=== PATIENT | female | born 1975 | race Caucasian/White ===

== ENCOUNTER 2017-10-22 05:42 | Emergency (ER) | payer SELFPAY ==
[~2017-10-22 05:42] MED LIST: CLIN1CAP5 PO; HYDR-3533 PO; MMW SSP; NYST100010 PO
[2017-10-22] MEDS ORDERED: diphenhydrAMINE HCL 50 MG/ML VIAL IV PUSH ONE (06:00)
[2017-10-22] MEDS ORDERED: LORazepam 2 MG/ML VIAL ONE (06:05)
[2017-10-22] MEDS ORDERED: LORAZEPAM 2 MG/ML IM ONE (06:09)
[2017-10-22 06:10] VITALS: BP 162/87; PULSE 75; RESP 18; O2SAT 99
[2017-10-22] MEDS ORDERED: ZIPRASIDONE MESYLATE 20 MG VIAL IM PRN (06:30)
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
--- NOTE | 2017-10-22 13:36 | PD ---
Physical Exam Narrative This patient was seen by previous provider, medically clear and can be discharge when sober and ambulating. Patient is now sober and cooperative. She admits to drinking alcohol. Denies any trauma, chest pain, sob, n/v, abdominal pain, focal weakness or numbness. Ambulating in the ED without any assistance and wants to go home. Data Data Last Documented VS Vital Signs Date Time Temp Pulse Resp B/P (MAP) Pulse Ox O2 Delivery O2 Flow Rate FiO2 10/22/17 06:10 75 18 162/87 (112) 99 Orders Orders Diphenhydramine Inj (Benadryl Inj) (10/22/17 06:00) Lorazepam Inj (Ativan Inj) (10/22/17 06:05) Ziprasidone Inj (Geodon Inj) (10/22/17 06:30) Non-Formulary Drug (10/22/17 06:09) Ed Discharge Order (10/22/17 13:33) MDM Supervised Visit with HARSHAD: No Diagnosis Primary Impression: Alcohol intoxication Qualified Codes: F10.929 - Alcohol use, unspecified with intoxication, unspecified Patient Instructions: General Instructions, Alcohol Intoxication (ED) Departure Forms: Tests/Procedures Additional Instruction: Please follow up with your primary care physician in 3-7 days. Return to the ED if symptoms worsen. Med/Other Pt SpecificInfo: No Change to Meds Scripts No Active Prescriptions or Reported Meds Disposition: 01 DISCHARGE HOME Condition: Stable Meli Cruz Oct 22, 2017 13:36
== END 2017-10-22 13:36 | disposition home or self-care (01) ==
LOC: NEPE 05:42
DX: F10.929 Alcohol use, unspecified with intoxication, unspecified (principal); F17.200 Nicotine dependence, unspecified, uncomplicated
CPT/HCPCS: 96374; 99282; J1200; J2060